=== PATIENT | female | born 1990 | race Caucasian/White ===

== ENCOUNTER 2019-12-24 09:06 | Emergency (ER) | payer SELFPAY ==
[~2019-12-24] VITALS: Ht 167.6 cm; Wt 104.3 kg
[2019-12-24 09:10] VITALS: Ht 167.6 cm; Wt 104.3 kg
[2019-12-24 12:20] VITALS: BP 102/61
== END 2019-12-24 12:20 | disposition home or self-care (01) ==
LOC: ED 09:06
DX: L25.9 Unspecified contact dermatitis, unspecified cause (principal)
CPT/HCPCS: J0171; J1200; J7512

== ENCOUNTER 2019-12-27 01:19 | Emergency (ER) | payer SELFPAY ==
[~2019-12-27] VITALS: Ht 167.6 cm; Wt 99.8 kg
[2019-12-27 01:21] VITALS: Ht 167.6 cm; Wt 99.8 kg
[2019-12-27 03:34] VITALS: BP 116/77
== END 2019-12-27 03:34 | disposition home or self-care (01) ==
LOC: ED 01:19
DX: R05 Cough (principal); R06.02 Shortness of breath; Z20.828 Contact with and (suspected) exposure to other viral communicable diseases
CPT/HCPCS: Q0092